=== PATIENT | male | born 1970 | race Hispanic/Latino ===

== ENCOUNTER 2022-02-28 19:33 | Emergency (ER) | payer OTHER, SELFPAY ==
--- NOTE | ~2022-02-28 | XR_ITS ---
EXAM: XR knee LT min 4V DATE: 02/28/2022 20:06 HISTORY: PAIN TODAY SINCE 1PM,SWELLING,PAIN ALL OVER . COMPARISON: None available. FINDINGS: Normal mineralization. No fracture or dislocation. No lytic or blastic lesion. Joint space s are maintained. No erosion or periosteal change. Anterior soft tissue swelling. IMPRESSION: No acute osseous finding in the left knee. Reviewed, dictated and finalized at location K.
[2022-02-28 19:36] VITALS: BP 169/89; PULSE 100; RESP 16; TEMP 36.4; O2SAT 100
--- NOTE | 2022-02-28 20:41 | ED.LOWEXIN ---
HPI - Extremity Injury (Lower) General Chief Complaint: Extremity Injury, Lower Stated Complaint: Left knee swelliing Time Seen by Provider: 02/28/22 20:14 History of Present Illness HPI Narrative: Patient is a 51-year-old male who presents ER with left knee swelling. Reports she is at work wearing kneepads and the screw fell between his knee pad in his knee. He bent down on it and had some pain. He removed it. No break in the skin. He has developed swelling over the anterior aspect of his left knee. He maintains full range of motion. No numbness or tingling or weakness. Related Data Allergies Allergy/AdvReac Type Severity Reaction Status Date / Time No Known Allergies Allergy Verified 02/28/22 19:38 Review of Systems Musculoskeletal: Musculoskeletal: Denies arthralgias and Reports joint swelling Integumentary/Breasts: Skin/Breast: Denies rash and Denies skin ulcer Neurologic: Denies focal weakness and Denies numbness Exam Narrative: GENERAL: Well-appearing, well-nourished, and in no acute distress. HEAD: Normocephalic, atraumatic. EXTREMITIES: No pain right lower extremity. Left lower extremity with swelling of the prepatellar bursa. No tenderness. No breaks in the skin. No redness or induration. No joint line tenderness with normal range of motion at the left knee SKIN: Warm, dry, no rash. NEURO: Alert and oriented x3. PSYCH: Normal mood and affect. Course Course Emergency Course: Patient informed of diagnosis and treatment plan. Oral anti-inflammatories with ice and compression. Recommend avoiding bending at work or prolonged time on his knees as it will continue to irritate the bursitis. Vital Signs Vital signs: Vital Signs Temperature 97.6 F 02/28/22 19:36 Pulse Rate 100 02/28/22 19:36 Respiratory Rate 16 02/28/22 19:36 Blood Pressure 169/89 H 02/28/22 19:36 Pulse Oximetry 100 02/28/22 19:36 Temperature 97.6 F 02/28/22 19:36 Pulse Rate 100 02/28/22 19:36 Respiratory Rate 16 02/28/22 19:36 Blood Pressure 169/89 H 02/28/22 19:36 Pulse Oximetry 100 02/28/22 19:36 MDM - Extremity Injury (Lower) Imaging Data Radiologist's impression: ITS Impressions Knee X-Ray 02/28/22 20:08 IMPRESSION: No acute osseous finding in the left knee. Discharge Plan Discharge Clinical Impression: Bursitis, prepatellar, left Patient Disposition: Home, Self-Care Condition: Stable Instructions: Knee Bursitis (ED), P.R.I.C.E. Treatment (ED) Additional Instructions: You have inflammation of a fluid-filled sac of your knee. Use an Luke wrap for compression and apply ice to help decrease swelling. You should also take naproxen twice a day to decrease inflammation. It is also important that at your job you try not to be on your knees as it can continue to irritate the swelling. Return the ER if your knee is red and hot, you have fever over 100.4 ?F, or you have additional concerns. Prescriptions: New naproxen 500 mg tablet 500 mg PO BID Qty: 14 0RF Follow-up/Referrals: PHYSICIAN NOT ON STAFF,NONSTAFF [Primary Care Provider] - 1 Week
== END 2022-02-28 21:19 | disposition home or self-care (01) ==
PROVIDERS: Emergency Provider Emergency Medicine
DX: M70.42 Prepatellar bursitis, left knee (principal)
CPT/HCPCS: 73564; 99283